=== PATIENT | male | born 1945 | race Caucasian/White ===

== ENCOUNTER 2022-01-08 09:25 | Outpatient (CLI) | payer MEDICARE ==
[~2022-01-08 09:25] MED LIST: Iopamidol 370 76% 100 ML VIAL ONE
== END 2022-01-08 09:26 | disposition home or self-care (01) ==
LOC: CT 09:25
PROVIDERS: ATTEND Urology
DX: C61 Malignant neoplasm of prostate (principal); R59.0 Localized enlarged lymph nodes; K57.30 Diverticulosis of large intestine without perforation or abscess without bleeding; N28.1 Cyst of kidney, acquired; M17.12 Unilateral primary osteoarthritis, left knee
CPT/HCPCS: 74178; 78306; 82565; A9503; Q9967

== ENCOUNTER 2022-06-18 13:07 | Outpatient (CLI) | payer MEDICARE ==
[2022-06-18 14:32] LABS: PTT 25.6 sec (22.0-33.0); Prothrombin Time 10.4 sec (9.5-12.1)
[2022-06-18 14:46] LABS: Bilirubin Neg (Negative); Blood, Urine Negative (Negative); Clarity Clear (Clear); Glucose, Urine (Dipstick) 100 mg/dL (Negative); Ketone, Urine Negative (Negative); Leukocyte Negative (Negative); Nitrite Negative (Negative); Protein, Urine (Dipstick) Negative (Neg-Trace); Urobilinogen Normal mg/dL (Less than 2)
[2022-06-18 14:49] LABS: Hemoglobin 12.7 g/dL (13.5-17.5); Mean Corpuscular Hemoglobin 29.8 pg (27.0-33.0); Mean Corpuscular Volume 87.6 fl (81.2-95.1); Mean Platelet Volume 10.9 fl (7.4-10.4); Platelet Count 196 10x3/uL (150-450); RBC Distribution Width 13.5 % (11.5-14.5); Red Blood Cell (RBC) Count 4.26 10x6/uL (4.32-5.72); White Blood Cell (WBC) Count 7.1 10x3/uL (3.5-10.5)
[2022-06-18 15:28] LABS: Bacteria/HPF Rare-Few HPF (None Seen); RBC/HPF 0-3 HPF (0-3); Squamous Epithelial 0-3 HPF (0-3); WBC/HPF 0-3 HPF (0-3)
[2022-06-18 15:29] LABS: Mucous/LPF 2+ LPF (<2+)
== END 2022-06-18 13:08 | disposition home or self-care (01) ==
LOC: LABBT 13:07
PROVIDERS: ATTEND Urology
DX: Z01.818 Encounter for other preprocedural examination (principal); C61 Malignant neoplasm of prostate; R97.20 Elevated prostate specific antigen [PSA]; N40.1 Benign prostatic hyperplasia with lower urinary tract symptoms; Z20.822 Contact with and (suspected) exposure to COVID-19
CPT/HCPCS: 81001; 85027; 85610; 85730; 87086; 87811; 93005; 93010

== ENCOUNTER 2022-06-23 08:29 | Day surgery (SDC) | payer MEDICARE ==
[2022-06-19 15:11] VITALS: BMI 30.7
[2022-06-23] MEDS ORDERED: Bacitracin Zinc Ointment 30 gm TUBE ONE (11:20)
[2022-06-23] MEDS ORDERED: Bupivacaine 0.25% 10 ML VIAL ONE (11:20)
[2022-06-23] MEDS ORDERED: CEFAZOLIN 2 GM VIAL ONE (12:08)
[2022-06-23] MEDS ORDERED: Sodium Chloride 0.9% 100 ML ONE (12:08)
[2022-06-23] MEDS ORDERED: Famotidine/PF 20 mg/2ml Vial ONE (12:19)
[2022-06-23] MEDS ORDERED: fentaNYL Citrate/PF 100 MCG/2 ML SYRINGE ONE (12:19)
[2022-06-23] MEDS ORDERED: SUGAMMADEX SODIUM 200 MG/2 ML VIAL ONE (12:19)
[2022-06-23] MEDS ORDERED: Metoclopramide HCl 10 MG/2 ML VIAL ONE (12:30)
[2022-06-23] MEDS ORDERED: Ondansetron PF 4 MG/2 ML Vial ONE (12:30)
[2022-06-23] MEDS ORDERED: ePHEDrine 50 MG/ML VIAL ONE (12:30)
[2022-06-23] MEDS ORDERED: PROPOFOL 200 MG/20 ML VIAL ONE (12:30)
[2022-06-23] MEDS ORDERED: Ketorolac Tromethamine 30 MG/ML VIAL ONE (12:30)
[2022-06-23] MEDS ORDERED: Rocuronium Bromide 10 MG/ML (10ML VIAL) ONE (12:30)
[2022-06-23] MEDS ORDERED: Lidocaine 1% PF 5 ML VIAL ONE (12:30)
[2022-06-23] MEDS ORDERED: Glycopyrrolate 0.2 MG/ML 5 ML SYRINGE ONE (12:30)
== END 2022-06-23 16:15 | disposition home or self-care (01) ==
LOC: SDC 08:29
PROVIDERS: ATTEND Urology
PROC: 0VTC0ZZ Resection of Bilateral Testes, Open Approach (ICD-10-PCS; principal; 2022-06-23)
DX: C61 Malignant neoplasm of prostate (principal); I97.2 Postmastectomy lymphedema syndrome; N40.0 Benign prostatic hyperplasia without lower urinary tract symptoms; R81 Glycosuria; E78.5 Hyperlipidemia, unspecified; I25.10 Atherosclerotic heart disease of native coronary artery without angina pectoris; M19.90 Unspecified osteoarthritis, unspecified site; Z79.82 Long term (current) use of aspirin; Z79.84 Long term (current) use of oral hypoglycemic drugs; Z79.899 Other long term (current) drug therapy
CPT/HCPCS: 88305; J0690; J1885; J2405; J2704; J2765; J3490; S0020; S0028

== ENCOUNTER 2022-09-10 11:07 | Outpatient (CLI) | payer MEDICARE ==
[2022-09-10 12:41] LABS: Hemoglobin 13.1 g/dL (13.5-17.5); Mean Corpuscular HGB CONC 33.9 g/dL (32.0-36.0); Mean Corpuscular Hemoglobin 30.3 pg (27.0-33.0); Mean Corpuscular Volume 89.4 fl (81.2-95.1); Platelet Count 173 10x3/uL (150-450); RBC Distribution Width 13.2 % (11.5-14.5); Red Blood Cell (RBC) Count 4.32 10x6/uL (4.32-5.72); White Blood Cell (WBC) Count 6.1 10x3/uL (3.5-10.5)
[2022-09-10 12:45] LABS: PTT 26.2 sec (22.0-33.0); Prothrombin Time 10.4 sec (9.5-12.1)
[2022-09-10 12:48] LABS: Anion Gap 10 mmol/L (10-20); BUN (Urea Nitrogen) 20 mg/dL (8.4-25.7); Calc. Creatinine Clearance 0 mL/min (70-130); Calcium 9.5 mg/dL (7.8-10.44); Carbon Dioxide 30 mmol/L (23-31); Chloride 103 mmol/L (98-107); Estimated GFR 93; Glucose 122 mg/dL (83-110); Potassium 4.4 mmol/L (3.5-5.1); Sodium 139 mmol/L (136-145)
[2022-09-10 13:11] LABS: RBC/HPF None Seen HPF (0-3)
== END 2022-09-10 11:08 | disposition home or self-care (01) ==
LOC: LABBT 11:07
PROVIDERS: ATTEND Urology
DX: Z01.818 Encounter for other preprocedural examination (principal); C61 Malignant neoplasm of prostate; R97.20 Elevated prostate specific antigen [PSA]; N40.1 Benign prostatic hyperplasia with lower urinary tract symptoms; E11.65 Type 2 diabetes mellitus with hyperglycemia; K59.01 Slow transit constipation; N39.43 Post-void dribbling; N39.41 Urge incontinence; R30.0 Dysuria; R81 Glycosuria; R68.89 Other general symptoms and signs
CPT/HCPCS: 80048; 81015; 85027; 85610; 85730; 87086; 93005; 93010

== ENCOUNTER 2022-12-11 11:39 | Outpatient (CLI) | payer MEDICARE ==
[2022-12-11 13:31] LABS: #Eosinphils 0.2 10x3/uL (0.0-0.5); #Monocytes 0.5 10x3/uL (0.0-1.1); #Neutrophils 3.8 10x3/uL (1.5-8.4); %Basophils 0.6 % (0.0-2.0); %Eosinophils 3.6 % (0.0-6.0); %Lymphocytes 14.7 % (18.0-47.0); %Monocytes 9.3 % (0.0-10.0); %Neutrophils 71.6 % (40.0-75.0); Hemoglobin 12.7 g/dL (13.5-17.5); Mean Corpuscular HGB CONC 34.1 g/dL (32.0-36.0); Mean Corpuscular Hemoglobin 30.8 pg (27.0-33.0); Mean Corpuscular Volume 90.3 fl (81.2-95.1); Mean Platelet Volume 11.1 fl (7.4-10.4); Platelet Count 159 10x3/uL (150-450); RBC Distribution Width 13.2 % (11.5-14.5); Red Blood Cell (RBC) Count 4.12 10x6/uL (4.32-5.72); White Blood Cell (WBC) Count 5.3 10x3/uL (3.5-10.5)
== END 2022-12-11 11:40 | disposition home or self-care (01) ==
LOC: LABBT 11:39
PROVIDERS: ATTEND Specialist
DX: Z01.812 Encounter for preprocedural laboratory examination (principal); R19.8 Other specified symptoms and signs involving the digestive system and abdomen
CPT/HCPCS: 85025; 93005; 93010

== ENCOUNTER 2022-12-16 05:41 | Inpatient (IN) | payer MEDICARE ==
[2022-12-15 10:15] VITALS: BMI 31.2
[2022-12-16] MEDS ORDERED: Sodium Chloride 0.9% 100 ML ONE (06:14)
[2022-12-16] MEDS ORDERED: CEFAZOLIN 2 GM VIAL ONE (06:14)
[2022-12-16] MEDS ORDERED: Ketorolac Tromethamine 30 MG/ML VIAL ONE ×2 (06:14→13:23)
[2022-12-16] MEDS ORDERED: Acetaminophen 500 MG TAB ONE (06:14)
[2022-12-16] MEDS ORDERED: fentaNYL PF 100 MCG/2 ML SYRINGE ONE (06:16)
[2022-12-16] MEDS ORDERED: SUGAMMADEX SODIUM 200 MG/2 ML VIAL ONE (06:16)
[2022-12-16] MEDS ORDERED: Dexmedetomidine 200 MCG/2 ML VIAL ONE (06:16)
[2022-12-16] MEDS ORDERED: Bupivacaine/Epinephrine 0.25% 30 ML VIAL ONE ×2 (06:49→09:08)
[2022-12-16] MEDS ORDERED: Lidocaine 1% PF 5 ML VIAL ONE (07:42)
[2022-12-16] MEDS ORDERED: Dexamethasone 20 MG/5 ML VIAL ONE (07:42)
[2022-12-16] MEDS ORDERED: Ondansetron PF 4 MG/2 ML Vial ONE (07:42)
[2022-12-16] MEDS ORDERED: Glycopyrrolate 0.2 MG/ML 5 ML SYRINGE ONE (07:42)
[2022-12-16] MEDS ORDERED: Rocuronium Bromide 10 MG/ML (10ML VIAL) ONE (07:42)
[2022-12-16] MEDS ORDERED: PROPOFOL 200 MG/20 ML VIAL ONE (07:42)
[2022-12-16] MEDS ORDERED: NEOSTIGMINE 3 MG/3 ML SYR 3 MG/3 ML SYRINGE ONE (07:42)
[2022-12-16] MEDS ORDERED: Ondansetron HCl/PF 4 MG/2 ML Vial IVP PRN (09:06)
[2022-12-16] MEDS ORDERED: Promethazine HCl 25 MG/ML VIAL IM PRN ×2 (09:06→10:07)
[2022-12-16] MEDS ORDERED: Morphine 2 MG/ML VIAL SLOW IVP PRN (10:07)
[2022-12-16] MEDS ORDERED: Insulin Regular 300 UNITS/3 ML VIAL SC PRN (10:07)
[2022-12-16] MEDS ORDERED: Ondansetron PF 4 MG/2 ML Vial IVP PRN (10:07)
[2022-12-16] MEDS ORDERED: hydrALAZINE 20 MG/ML VIAL SLOW IVP PRN (10:07)
[2022-12-16] MEDS ORDERED: Ipratropium/Albuterol 3 ML NEB NEB PRN (10:07)
[2022-12-16] MEDS ORDERED: Morphine 4 MG/ML VIAL SLOW IVP PRN (10:07)
[2022-12-16] MEDS ORDERED: Dextrose 5% in Water 1,000 ML IV PRN (11:00)
[2022-12-16] MEDS ORDERED: Dextrose 50% Abboject 50 ML SYRINGE IVP PRN (11:00)
[2022-12-16 13:23] LABS: SARS-CoV-2 NAA Rapid Test Not Detected (NotDetected)
[2022-12-16] MEDS: Ketorolac Tromethamine 30 MG/ML VIAL IVP SCH ×3 (13:24→23:15)
[2022-12-16] MEDS ORDERED: FLU VACC QS2022-23(65YR UP)/PF 240 MCG/0.7 ML SYRINGE IM ONE (15:45)
[2022-12-16] MEDS: Sodium Chloride 0.9% 1,000 ML IV SCH ×2 (15:54→23:19)
[2022-12-16] MEDS: cefOXitin 2 GM in Sodium Chloride 0.9% 100 ML IVPB SCH ×2 (16:20→23:18)
[2022-12-16] MEDS: Famotidine/PF 20 mg/2ml Vial SLOW IVP SCH (20:35)
[2022-12-16] MEDS: Famotidine 20 MG TAB PO SCH (20:36)
[2022-12-17] MEDS: Ketorolac Tromethamine 30 MG/ML VIAL IVP SCH ×3 (05:49→17:25)
[2022-12-17] MEDS: Sodium Chloride 0.9% 1,000 ML IV SCH (06:35)
[2022-12-17 06:38] LABS: #Lymphocytes 0.6 thou/uL (1.20-3.40); #Monocytes 0.9 thou/uL (0.11-0.59); #Neutrophils 8.2 thou/uL (1.40-6.50); %Basophils 0.1 % (0.0-1.0); %Eosinophils 0.4 % (0.0-10.0); %Lymphocytes 6.2 % (21.0-51.0); %Monocytes 9.1 % (0.0-10.0); %Neutrophils 84.1 % (42.0-75.0); Hemoglobin 11.4 g/dL (14.0-18.0); Mean Corpuscular HGB CONC 33.5 g/dL (32.0-36.0); Mean Corpuscular Hemoglobin 31.5 pg (27.0-31.0); Mean Platelet Volume 8.6 fL (7.4-10.4); Platelet Count 122 10x3/uL (130-400); RBC Distribution Width 12.6 % (11.5-14.5); Red Blood Cell (RBC) Count 3.63 mill/uL (4.70-6.10); White Blood Cell (WBC) Count 9.8 10x3/uL (4.8-10.8)
[2022-12-17 06:55] LABS: Anion Gap 10 mmol/L (10-20); BUN (Urea Nitrogen) 13 mg/dL (8.4-25.7); Calc. Creatinine Clearance 109 mL/min (70-130); Calcium 8.6 mg/dL (7.8-10.44); Carbon Dioxide 27 mmol/L (23-31); Chloride 105 mmol/L (98-107); Estimated GFR 92; Glucose 117 mg/dL (83-110); Potassium 4.1 mmol/L (3.5-5.1); Sodium 138 mmol/L (136-145)
[2022-12-17] MEDS: Aspirin Chewable 81 MG TAB PO SCH (09:17)
[2022-12-17] MEDS: Tamsulosin HCl 0.4 MG CAP PO SCH (09:17)
[2022-12-17] MEDS: Dutasteride 0.5 MG CAP PO SCH (09:17)
[2022-12-17] MEDS: metFORMIN 500 MG TAB PO SCH (09:17)
[2022-12-17] MEDS: Famotidine/PF 20 mg/2ml Vial SLOW IVP SCH (09:18)
[2022-12-17] MEDS: Famotidine 20 MG TAB PO SCH ×2 (09:18→21:00)
[2022-12-17] MEDS ORDERED: Sodium Chloride 0.9% 1,000 ML IV SCH (13:45)
[2022-12-17] MEDS: cefOXitin 2 GM in Sodium Chloride 0.9% 100 ML IVPB SCH (17:26)
[2022-12-17] MEDS ORDERED: Atorvastatin Calcium 40 MG TAB PO SCH (21:00)
[2022-12-18] MEDS: Famotidine/PF 20 mg/2ml Vial SLOW IVP SCH ×2 (00:41→09:39)
[2022-12-18] MEDS: Ketorolac Tromethamine 30 MG/ML VIAL IVP SCH ×4 (00:56→12:58)
[2022-12-18] MEDS: cefOXitin 2 GM in Sodium Chloride 0.9% 100 ML IVPB SCH ×2 (00:58→09:38)
[2022-12-18] MEDS: Tamsulosin HCl 0.4 MG CAP PO SCH (09:38)
[2022-12-18] MEDS: Aspirin Chewable 81 MG TAB PO SCH (09:38)
[2022-12-18] MEDS: Famotidine 20 MG TAB PO SCH (09:38)
[2022-12-18] MEDS: metFORMIN 500 MG TAB PO SCH (09:38)
[2022-12-18] MEDS: Dutasteride 0.5 MG CAP PO SCH (09:39)
[2022-12-18 12:33] VITALS: BP 138/75; TEMP 97.7
== END 2022-12-18 13:01 | disposition home or self-care (01) | DRG 907 ==
LOC: SDC 05:41 → SJJU 14:17
PROVIDERS: ADMIT Specialist; ATTEND Specialist
PROC: 0DB80ZZ Excision of Small Intestine, Open Approach (ICD-10-PCS; principal; 2022-12-16)
PROC: 0WBF0ZZ Excision of Abdominal Wall, Open Approach (ICD-10-PCS; 2022-12-16)
PROC: 0WPF0JZ Removal of Synthetic Substitute from Abdominal Wall, Open Approach (ICD-10-PCS; 2022-12-16)
DX: T85.79XA Infection and inflammatory reaction due to other internal prosthetic devices, implants and grafts, initial encounter (principal); K55.029 Acute infarction of small intestine, extent unspecified; K63.1 Perforation of intestine (nontraumatic); K63.2 Fistula of intestine; N40.0 Benign prostatic hyperplasia without lower urinary tract symptoms; E11.9 Type 2 diabetes mellitus without complications; K66.0 Peritoneal adhesions (postprocedural) (postinfection); Z20.822 Contact with and (suspected) exposure to COVID-19; Z98.890 Other specified postprocedural states; Y83.8 Other surgical procedures as the cause of abnormal reaction of the patient, or of later complication, without mention of misadventure at the time of the procedure
CPT/HCPCS: 36415; 36416; 80048; 85025; 88302; 88307; A4649; J0694; J1100; J1650; J1885; J2405; J2704; J3490; J7050; S0028; U0002

== ENCOUNTER 2023-06-25 12:28 | Outpatient (CLI) | payer MEDICARE ==
[2023-06-25 13:27] LABS: #Eosinphils 0.1 10x3/uL (0.0-0.5); #Monocytes 0.6 10x3/uL (0.0-1.1); #Neutrophils 4.2 10x3/uL (1.5-8.4); %Basophils 0.7 % (0.0-2.0); %Lymphocytes 18.2 % (18.0-47.0); %Monocytes 9.6 % (0.0-10.0); %Neutrophils 69.2 % (40.0-75.0); Hematocrit 39.1 % (38.8-50.0); Hemoglobin 12.8 g/dL (13.5-17.5); Mean Corpuscular HGB CONC 32.7 g/dL (32.0-36.0); Mean Corpuscular Hemoglobin 29.4 pg (27.0-33.0); Mean Corpuscular Volume 89.7 fl (81.2-95.1); Mean Platelet Volume 10.7 fl (7.4-10.4); Platelet Count 154 10x3/uL (150-450); RBC Distribution Width 13.7 % (11.5-14.5); Red Blood Cell (RBC) Count 4.36 10x6/uL (4.32-5.72); White Blood Cell (WBC) Count 6.1 10x3/uL (3.5-10.5)
== END 2023-06-25 12:29 | disposition home or self-care (01) ==
LOC: LABBT 12:28
PROVIDERS: ATTEND Orthopaedic Surgery Hand Surgery
DX: Z01.818 Encounter for other preprocedural examination (principal)
CPT/HCPCS: 85025; 93005; 93010

== ENCOUNTER 2023-06-30 08:57 | Day surgery (SDC) | payer MEDICARE ==
[2023-06-25 13:22] VITALS: BMI 31.1
[2023-06-30] MEDS ORDERED: Bacitracin Zinc Ointment 30 gm TUBE ONE (09:29)
[2023-06-30] MEDS ORDERED: Bupivacaine PF 0.5% 30 ML VIAL ONE (09:29)
[2023-06-30] MEDS ORDERED: Sodium Chloride 0.9% 100 ML ONE (10:16)
[2023-06-30] MEDS ORDERED: CEFAZOLIN 2 GM VIAL ONE (10:16)
[2023-06-30] MEDS ORDERED: PROPOFOL 200 MG/20 ML VIAL ONE (10:38)
[2023-06-30] MEDS ORDERED: ePHEDrine Sulfate 50 MG/10 ML VIAL ONE (10:38)
[2023-06-30] MEDS ORDERED: HYDROcodone/Acetaminophen 5/325 mg Tablet ONE (12:28)
== END 2023-06-30 13:20 | disposition home or self-care (01) ==
LOC: SDC 08:57
PROVIDERS: ATTEND Orthopaedic Surgery Hand Surgery
PROC: 01N50ZZ Release Median Nerve, Open Approach (ICD-10-PCS; principal; 2023-06-30)
DX: G56.01 Carpal tunnel syndrome, right upper limb (principal); M18.0 Bilateral primary osteoarthritis of first carpometacarpal joints; M65.341 Trigger finger, right ring finger; M65.331 Trigger finger, right middle finger; I25.10 Atherosclerotic heart disease of native coronary artery without angina pectoris; E11.9 Type 2 diabetes mellitus without complications; Z79.84 Long term (current) use of oral hypoglycemic drugs; Z79.899 Other long term (current) drug therapy
CPT/HCPCS: J3490; S0020